=== PATIENT | female | born 1970 | race Caucasian/White ===

== ENCOUNTER 2016-10-11 21:38 | Emergency (ER) | payer SELFPAY ==
[~2016-10-11 21:38] MED LIST: AMITRIPTYLINE H10 MG PO; ANTIVERT12.5 MG PO; APAP/HYDROCODON1 T13 PO; ATIVAN1 MG PO; COLACE100 MG PO; DILANTIN100 MG PO; ECO81 PO; ESCITALOPRAM20 M1 PO; FLEXERIL10 MG PO; GOOD SENSE ASPI81 M3 PO; HYDROXYCHLOROQ200 MG PO; LEVOTHYROXIN0.025 M2 PO; LORAZEPAM0.5 MG PO; NEPHRO-VITE VITA1 EA PO; NOR10T PO; ONDANSETRON4 M3 PO; PHOSLO667 MG PO; PREDNISONE1 MG PO; RENVELA800 M1 PO; SYNTHROID0.175 MG PO; ZOC20 PO
[2016-10-11 22:14] LABS: BASOPHIL % 0.3 % (0-2); PLATELET COUNT 230 x10^3mcL (130-400)
[2016-10-11 22:19] LABS: RED CELL DISTRIBUTION WIDTH 20.3 % (11.5-14.5)
[2016-10-11 22:21] LABS: CALCIUM 8.4 mg/dL (8.5-10.1); CARBON DIOXIDE 18.6 mmol/L (21-32); CHLORIDE SERUM 107 mmol/L (98-107); GFR1 > 60 mL/min; GLUCOSE SERUM 121 mg/dL (74-106); POTASSIUM SERUM 3.7 mmol/L (3.5-5.1); SODIUM SERUM 141 mmol/L (136-145)
[2016-10-11 22:25] LABS: ALBUMIN 3.5 g/dL (3.4-5.0); ALKALINE PHOSPHATASE 66 U/L (46-116); ALT/SGPT 59 U/L (14-59); AST/SGOT 46 U/L (15-37); BILIRUBIN TOTAL 0.48 mg/dL (0.20-1.00); LIPASE 208 IU/L (73-393); TOTAL PROTEIN, SERUM 7.3 g/dL (6.4-8.2)
[2016-10-11 22:49] LABS: rbc morphology (normal/abnorm) ABNORMAL (NORMAL)
[2016-10-12 01:00] VITALS: BP 129/75
== END 2016-10-12 01:00 | disposition home or self-care (01) ==
LOC: ED 21:38
PROVIDERS: Emergency Medicine
DX: R06.00 Dyspnea, unspecified (principal); R42 Dizziness and giddiness; R20.2 Paresthesia of skin; E07.9 Disorder of thyroid, unspecified
CPT/HCPCS: J7030; Q0092

== ENCOUNTER 2017-03-12 21:14 | Emergency (ER) | payer OTHER ==
[~2017-03-12] VITALS: Ht 157.5 cm; Wt 75.7 kg
[2017-03-12 21:26] VITALS: Ht 157.5 cm; Wt 75.7 kg
[2017-03-12 21:44] LABS: BASOPHIL % 0.5 % (0-2); PLATELET COUNT 195 x10^3mcL (130-400)
[2017-03-12 21:45] LABS: RED CELL DISTRIBUTION WIDTH 16.8 % (11.5-14.5)
[2017-03-12 21:51] LABS: CALCIUM 8.9 mg/dL (8.5-10.1); CARBON DIOXIDE 18.1 mmol/L (21-32); CHLORIDE SERUM 108 mmol/L (98-107); CREATININE SERUM 0.9 mg/dL (0.6-1.0); GFR1 > 60 mL/min; GLUCOSE SERUM 152 mg/dL (74-106); POTASSIUM SERUM 3.1 mmol/L (3.5-5.1); SODIUM SERUM 141 mmol/L (136-145)
[2017-03-12 22:03] LABS: ALBUMIN 3.5 g/dL (3.4-5.0); ALKALINE PHOSPHATASE 60 U/L (46-116); ALT/SGPT 11 U/L (14-59); AST/SGOT 16 U/L (15-37); BILIRUBIN TOTAL 0.31 mg/dL (0.20-1.00); MAGNESIUM 1.7 mg/dL (1.8-2.4); T4(THYROXINE) 12.3 ug/dL (4.7-13.3); TOTAL PROTEIN, SERUM 7.1 g/dL (6.4-8.2)
[2017-03-13 03:39] VITALS: BP 108/71
== END 2017-03-13 03:39 | disposition short-term general hospital (02) ==
LOC: ED 21:14
PROVIDERS: Emergency Medicine
DX: I47.1 Supraventricular tachycardia (principal); I49.9 Cardiac arrhythmia, unspecified; E83.42 Hypomagnesemia; E87.6 Hypokalemia; E86.0 Dehydration; E03.9 Hypothyroidism, unspecified
CPT/HCPCS: 83880; J0153; J2060; J2405; J3475; J7030